=== PATIENT | male | born 1945 | race Caucasian/White ===

== ENCOUNTER → 2016-06-11 | Outpatient (CLI) | payer MEDICARE ==
[~2016-06-11] MED LIST: ALLO100T PO; ALPR0.25 PO; ATOR10TA15 PO; CITA20TA4 PO; FURO1TAB62 PO; IRBE300T11 PO; METO-338 PO; POTA10TA2 PO
[2016-06-11 12:44] LABS: AUTOMATED NEUTROPHIL # 5.5 TH/MM3 (1.8-7.7); BASOPHIL # 0.1 TH/MM3 (0-0.2); BASOPHIL % 0.6 % (0.0-2.0); EOSINOPHIL # 0.4 TH/MM3 (0-0.4); EOSINOPHIL % 4.5 % (0.0-4.0); HEMATOCRIT 48.7 % (39.0-51.0); HEMO FLAGS DIFF FINAL; LYMPH % 24.5 % (9.0-44.0); LYMPHOCYTE # 2.4 TH/MM3 (1.0-4.8); MEAN CELL VOLUME 94.8 FL (80.0-100.0); MEAN CORPUSCULAR HEMOGLOBIN 32.7 PG (27.0-34.0); MEAN CORPUSCULAR HGB CONC 34.5 % (32.0-36.0); MONO % 14.8 % (0.0-8.0); NEUT % 55.6 % (16.0-70.0); PLATELET COUNT 174 TH/MM3 (150-450); RED BLOOD COUNT 5.14 MIL/MM3 (4.50-5.90); RED CELL DISTRIBUTION WIDTH 14.8 % (11.6-17.2); WHITE BLOOD COUNT 9.9 TH/MM3 (4.0-11.0)
[2016-06-11 12:51] LABS: APTT (PATIENT) 25.9 SEC (24.3-30.1); PROTHROMBIN TIME - PATIENT 10.9 SEC (9.8-11.6)
== END ==
LOC: CLAB 12:03
PROVIDERS: ATTEND Psychiatry & Neurology Neurology
DX: G60.3 Idiopathic progressive neuropathy (principal); R79.1 Abnormal coagulation profile; R78.9 Finding of unspecified substance, not normally found in blood
CPT/HCPCS: 36415; 85025; 85610; 85730

== ENCOUNTER 2016-06-15 07:22 | Day surgery (SDC) | payer MEDICARE ==
[~2016-06-15] VITALS: Ht 182.9 cm; Wt 100.0 kg
[2016-06-15 07:41] VITALS: BP 143/87; PULSE 81; RESP 20; TEMP 97.7; O2SAT 95
[2016-06-15] MEDS ORDERED: IRBE300T11 PO (07:41)
[2016-06-15] MEDS ORDERED: METO-338 PO (07:42)
[2016-06-15] MEDS ORDERED: FURO1TAB62 PO (07:42)
[2016-06-15] MEDS ORDERED: ATOR10TA15 PO (07:43)
[2016-06-15] MEDS ORDERED: POTA10TA2 PO (07:43)
[2016-06-15] MEDS ORDERED: ALLO100T PO (07:44)
[2016-06-15] MEDS ORDERED: CITA20TA4 PO (07:44)
[2016-06-15] MEDS ORDERED: ALPR0.25 PO (07:45)
[2016-06-15 10:10] VITALS: BP 116/62; PULSE 64; RESP 16; TEMP 97.7; O2SAT 91
--- NOTE | 2016-06-15 10:27 | PD.RAD ---
Post Procedure Progress Note Pre Procedure Diagnosis: (1) Neuropathy Post Procedure Diagnosis: (1) Neuropathy Procedure Date: Jun 15, 2016 Supervising Radiologist: Issac Ibarra Anesthesia: Local Plan of Activity Patient to Unit: ROPU Patient Condition: Good See PACS Report for procedural detail/treatment Spinal Procedure Lumbar Puncture L3-L4 Fluid Removal (CCs): 10 Fluid Description: Clear Puncture Time: 09:54 Issac Ibarra MD Jun 15, 2016 10:27
[2016-06-15 10:55] LABS: GROSS BLOOD TUBE #1 0 (0); GROSS BLOOD TUBE #2 0 (0); GROSS BLOOD TUBE #4 CL (0); SUPERNATE COLOR TUBE #1 CLEAR (CLEAR); SUPERNATE COLOR TUBE #2 CLEAR (CLEAR); SUPERNATE COLOR TUBE #3 CLEAR (CLEAR); SUPERNATE COLOR TUBE #4 CLEAR (CLEAR); VOLUME TUBE # 2 2.2 ML; VOLUME TUBE # 3 2.5 ML; VOLUME TUBE # 4 2.5 ML
[2016-06-15 10:56] LABS: WBC TUBE #4 1 /MM3 (0-10)
[2016-06-15 12:02] LABS: CSF LYMPHOCYTES 100 %; CSF NEUTROPHILS 0 %
[2016-06-15 12:55] VITALS: BP 137/75; PULSE 73; RESP 16; O2SAT 94
--- NOTE | 2016-06-15 13:12 | RADRPT ---
EXAM DATE/TIME: 06/15/2016 09:55 [facility] COMPARISON: No previous studies available for comparison. INDICATIONS : Patient with a history of neuropathy. MEDICAL HISTORY : HTN Neuropathy Lymphoma SURGICAL HISTORY : Kidney stone removal ENCOUNTER: Initial ACUITY: 1 week PAIN SCORE: 4/10 LOCATION: Head LUMBAR PUNCTURE TIME: 0954 hours FLUORO TIME: 0.9 minutes IMAGE SERIES: 1 ACCESS LEVEL: L3-4 FLUID: 10 cc of clear CSF was collected and sent to the laboratory for analysis. PROCEDURE : 1. Fluoroscopic guided lumbar puncture. The risks, benefits and alternatives to the procedure were explained and verbal and written consent w as obtained. The site was prepped in sterile fashion. Full sterile technique was used, including ca p, mask, sterile gloves and gown and a large sterile sheet. Hand hygiene and 2% chlorhexidine and/or betadine/alcohol prep was utilized per protocol for cutaneous antisepsis. The skin and subcutaneous tissues were infiltrated with local anesthetic solution. With fluoroscopic guidance the lumbar thecal sac was punctured at the level above. The fluid describ ed above was removed without difficulty. The patient tolerated the procedure well and there were no complications. CONCLUSION: Uncomplicated fluoroscopically guided lumbar puncture. Issac Ibarra MD on June 15, 2016 at 13:10 Board Certified Radiologist. This report was verified electronically.
[2016-06-18 10:20] LABS: CSF CRYPTOCOCCUS AG CONF ND (NOT DETECTD)
[2016-06-18 14:48] LABS: LYME IGG IMMUNOBLOT CSF None Detected bands (None Detected); LYME IGM IMMUNOBLOT CSF None Detected bands (None Detected)
[2016-06-18 15:18] LABS: ALBUMIN SERUM 3880 mg/dL (3200 - 4800); IGG CSF 3.9 mg/dL (<=8.1); IGG INDEX CSF 0.52 (<=0.85); IGG SERUM 897 mg/dL (767 - 1590); IGG/ALBUMIN CSF 0.12 (<=0.21); IGG/ALBUMIN SERUM 0.23 (<=0.40); OLIGOCLONAL BANDING CSF 0 bands (()); OLIGOCLONAL BANDING INTERPRET 0 bands (<4); OLIGOCLONAL BANDING SERUM 0 bands (()); SYNTHESIS RATE CSF 1.01 mg/24 h (<=12)
== END 2016-06-15 13:10 | disposition home or self-care (01) ==
LOC: HROP 07:22 → HRIP 07:23 → HROP 13:10
PROVIDERS: ATTEND Psychiatry & Neurology Neurology
DX: G60.3 Idiopathic progressive neuropathy (principal); I10 Essential (primary) hypertension; Z85.72 Personal history of non-Hodgkin lymphomas
CPT/HCPCS: 62270; 77003; 82040; 82042; 82164; 82784; 82945; 83873; 83916; 84157; 85652; 86140; 86403; 86592; 86618; 87015; 87070; 87102; 87116; 87205; 87206; 88112; 89051